=== PATIENT | female | born 1990 | race American Indian/Alaskan Native ===

== ENCOUNTER 2021-09-30 11:56 | Emergency (ER) | payer OTHER ==
[2021-09-30 12:38] VITALS: BP 106/74
--- NOTE | 2021-09-30 14:20 | XRay Report ---
CHEST 2 VIEWS INDICATION: cough. COMPARISON: none FINDINGS: Support devices: None. Heart: Within normal limits. Lungs/pleura: No acute air space or interstitial disease. No pleural abnormality or pneumothorax. Additional findings: Moderate to severe thoracolumbar scoliosis. IMPRESSION: No acute findings. Signer Name: Hans Thompson Jr, MD Signed: 09/30/2021 2:16 PM Workstation Name: [id number]
--- NOTE | 2021-09-30 14:34 | Emergency Department Report ---
- General Chief Complaint: Upper Respiratory Infection Stated Complaint: CHEST PAIN/CONGESTION Time Seen by Provider: 09/30/21 14:19 Source: patient Mode of arrival: Ambulatory Limitations: No Limitations - History of Present Illness Initial Comments: 31-year-old black female with no past medical history presents to the emergency department for evaluation of 1 day history of cough and congestion. She states that she thinks that she had Covid about 1 month ago she did not get tested but states that she had all of the symptoms. She states that yesterday she started to have persistent cough and she has pain all over when she coughs. She denies fever shortness of breath chest pain hemoptysis. She also complains of right lower dental pain from abscessed tooth that she has had for several days. She states that she had some purulent drainage from gums surrounding tooth a few days ago. MD Complaint: cough, rhinorrhea, nasal congestion -: days(s) (2) Severity: moderate Quality: burning Consistency: intermittent Worsens With: deep breaths Associated Symptoms: headache, rhinorrhea, nasal congestion, cough, shortness of breath. denies: fever, chills, myalgias, sore throat, stiff neck, chest pain, abdominal pain, nausea, vomiting, diarrhea, dysuria, rash, confusion, ear pain Treatments Prior to Arrival: none - Related Data Previous Rx's Medication Instructions Recorded Last Taken Type Amoxicillin [Amoxicillin CAP] 500 mg PO BID 10 Days #20 capsule 09/30/21 Unknown Rx Brompheniramine/Pseudoephed/Dm 118 ml PO TID PRN #118 ml 09/30/21 Unknown Rx [Bromfed Dm Cough Syrup] methylPREDNISolone [Medrol 4MG 4 mg PO DAILY #1 pack 09/30/21 Unknown Rx DOSEPAK (21 tabs)] Allergies Allergy/AdvReac Type Severity Reaction Status Date / Time No Known Allergies Allergy Unverified 09/30/21 12:33 ED Review of Systems ROS: Stated complaint: CHEST PAIN/CONGESTION Other details as noted in HPI Constitutional: no symptoms reported Eyes: denies: eye pain, eye discharge ENT: dental pain, congestion. denies: ear pain, throat pain Respiratory: cough. denies: shortness of breath, SOB with exertion, SOB at rest, wheezing Cardiovascular: denies: chest pain, palpitations, dyspnea on exertion, edema, syncope, paroxysmal nocturnal dyspnea Endocrine: no symptoms reported Gastrointestinal: denies: abdominal pain, nausea, diarrhea, constipation, hematemesis, melena, hematochezia Genitourinary: denies: urgency, dysuria, frequency, hematuria, discharge Musculoskeletal: myalgia. denies: back pain Skin: denies: rash, lesions Neurological: headache. denies: weakness, numbness, paresthesias, confusion, abnormal gait Psychiatric: denies: anxiety, depression ED Past Medical Hx - Past Medical History Previous Medical History?: No - Surgical History Additional Surgical History: COSMETIC - Medications Home Medications: Home Medications Medication Instructions Recorded Confirmed Last Taken Type Amoxicillin [Amoxicillin CAP] 500 mg PO BID 10 Days #20 capsule 09/30/21 Unknown Rx Brompheniramine/Pseudoephed/Dm 118 ml PO TID PRN #118 ml 09/30/21 Unknown Rx [Bromfed Dm Cough Syrup] methylPREDNISolone [Medrol 4MG 4 mg PO DAILY #1 pack 09/30/21 Unknown Rx DOSEPAK (21 tabs)] ED Physical Exam - General Limitations: No Limitations General appearance: alert, in no apparent distress - Head Head exam: Present: atraumatic, normocephalic - Eye Eye exam: Present: normal appearance. Absent: conjunctival injection - ENT ENT exam: Absent: normal orophraynx (Erythema noted) - Expanded ENT Exam Expanded Mouth exam: Present: normal external inspection Teeth exam: Present: dental caries, dental tenderness # (30), other (Noted to have edema and erythema surrounding tooth #30 with small abscess noted to the gum) Throat exam: Negative: normal inspection (Erythema noted), tonsillar exudate, R peritonsillar mass, L peritonsillar mass - Neck Neck exam: Present: normal inspection. Absent: tenderness, lymphadenopathy - Respiratory Respiratory exam: Present: normal lung sounds bilaterally, chest wall tenderness. Absent: respiratory distress, wheezes, rales, accessory muscle use, decreased breath sounds - Cardiovascular Cardiovascular Exam: Present: normal heart sounds - GI/Abdominal GI/Abdominal exam: Present: soft. Absent: distended, tenderness, guarding - Extremities Exam Extremities exam: Present: normal inspection, full ROM - Back Exam Back exam: Present: normal inspection. Absent: tenderness, CVA tenderness (R), CVA tenderness (L) - Neurological Exam Neurological exam: Present: alert, oriented X3 - Psychiatric Psychiatric exam: Present: normal affect, normal mood - Skin Skin exam: Present: warm, dry, intact, normal color ED Course Vital Signs 09/30/21 12:37 Temperature 98.6 F Pulse Rate 102 H Respiratory 20 Rate Blood Pressure 106/74 O2 Sat by Pulse 100 Oximetry ED Medical Decision Making - Radiology Data Radiology results: report reviewed, image reviewed Chest x-ray without abnormalities - Medical Decision Making 31-year-old black female with no past medical history presents to the emergency department for evaluation of 1 day history of cough and congestion. She states that she thinks that she had Covid about 1 month ago she did not get tested but states that she had all of the symptoms. She states that yesterday she started to have persistent cough and she has pain all over when she coughs. She denies fever shortness of breath chest pain hemoptysis. She also complains of right lower dental pain from abscessed tooth that she has had for several days. She states that she had some purulent drainage from gums surrounding tooth a few days ago Chest x-ray within normal limits. Patient in no acute distress. Patient noted to have URI with cough and congestion. Patient will be treated with steroids and cough medicine. Patient was noted to have abscessed tooth to the right lower. She will be treated with 10-day course of amoxicillin and encouraged to follow-up with dentist. She is encouraged to follow-up with a primary care provider if no improvement or worsening symptoms. Critical care attestation.: If time is entered above; I have spent that time in minutes in the direct care of this critically ill patient, excluding procedure time. ED Disposition Clinical Impression: URI with cough and congestion Disposition: 01 HOME / SELF CARE / HOMELESS Is pt being admited?: No Does the pt Need Aspirin: No Condition: Stable Instructions: Cough, Adult, [id number], Viral Respiratory Infection, [id number] Additional Instructions: Take medications as prescribed. Follow-up with primary care provider if no improvement or worsening symptoms. Follow-up in the emergency department as needed. Prescriptions: Amoxicillin [Amoxicillin CAP] 500 mg PO BID 10 Days #20 capsule Brompheniramine/Pseudoephed/Dm [Bromfed Dm Cough Syrup] 118 ml PO TID PRN #118 ml PRN Reason: Cough methylPREDNISolone [Medrol 4MG DOSEPAK (21 tabs)] 4 mg PO DAILY #1 pack Forms: Work/School Release Form(ED) Time of Disposition: 14:46 ED Dental HPI - General Chief complaint: Upper Respiratory Infection Stated complaint: CHEST PAIN/CONGESTION Time Seen by Provider: 09/30/21 14:19 Source: patient Mode of arrival: Ambulatory Limitations: No Limitations - History of Present Illness MD complaint: tooth pain -: days(s) Severity: moderate Quality: aching Consistency: constant - Related Data Previous Rx's Medication Instructions Recorded Last Taken Type Amoxicillin [Amoxicillin CAP] 500 mg PO BID 10 Days #20 capsule 09/30/21 Unknown Rx Brompheniramine/Pseudoephed/Dm 118 ml PO TID PRN #118 ml 09/30/21 Unknown Rx [Bromfed Dm Cough Syrup] methylPREDNISolone [Medrol 4MG 4 mg PO DAILY #1 pack 09/30/21 Unknown Rx DOSEPAK (21 tabs)] Allergies Allergy/AdvReac Type Severity Reaction Status Date / Time No Known Allergies Allergy Unverified 09/30/21 12:33
[2021-09-30] MEDS ORDERED: DEXAMETHASONE 4 MG TAB PO ONE (14:40)
[2021-09-30] MEDS ORDERED: BENZONATATE 100 MG CAP PO ONE (14:41)
[2021-09-30] MEDS ORDERED: KETOROLAC 10 MG TAB PO ONE (14:41)
== END 2021-09-30 23:43 | disposition home or self-care (01) ==
LOC: ED 11:56
DX: J02.9 Acute pharyngitis, unspecified (principal)
CPT/HCPCS: 71046; 99283; J8540